=== PATIENT | female | born 1985 | race African-American/Black ===

== ENCOUNTER 2023-09-16 17:55 | Emergency (ER) | payer MEDICARE, SELFPAY ==
[2023-09-16 18:03] VITALS: BP 125/83
[2023-09-16 18:32] LABS: % Basophils 1.4 % (0-2); % Eosinophils 5.1 % (0-6); % Immature Granulocytes 0.2 % (0-0.5); % Lymphocytes 28.3 % (20.5-51.1); Absolute Basophils 0.1 10^3/uL (0-0.2); Absolute Eosinophils 0.3 10^3/uL (0-0.7); Absolute Lymphocytes 1.9 10^3/uL (1.2-3.4); Absolute Monocytes 0.3 10^3/uL (0.1-0.6); Hematocrit 36.6 % (37.0-47.0); Hemoglobin 11.8 g/dL (12.0-16.0); Mean Corp Hgb Conc. 32.2 g/dL (33.0-37.0); Mean Corpuscular Hgb 24.6 pg (27.0-31.0); Mean Corpuscular Volume 76.3 fL (81.0-99.0); Mean Platelet Volume 12.4 fL (7.4-10.4); Nucleated Red Blood Cells % 0 %; Platelet Count 246 10^3/uL (130-400); White Blood Cell Count 6.6 10^3/uL (4.8-10.8)
[2023-09-16 18:35] LABS: HCG, Urine Qualitative Screen Negative
[2023-09-16 18:36] LABS: Urine Albumin Negative (Neg - Trace); Urine Bilirubin Negative (Negative); Urine Character Clear (Clear); Urine Color Yellow; Urine Glucose Negative (Negative); Urine Ketone Negative (Negative); Urine Leukocyte Negative (Negative); Urine Nitrite Negative (Negative); Urine Occult Blood 4+ (Negative); Urine Urobilinogen Negative (Neg - 1+)
[2023-09-16 18:45] LABS: ALT (SGPT) 25 U/L (0-35); AST (SGOT) 22 U/L (14-36); Albumin 3.9 g/dl (3.5-5.0); Alkaline Phosphatase 79 U/L (38-126); Blood Urea Nitrogen 12 mg/dl (7-17); Calcium 9.2 mg/dl (8.4-10.2); Carbon Dioxide 24 mmol/L (22-30); Chloride 103 mmol/L (98-107); Glucose 99 mg/dl (70-99); Sodium 136 mmol/L (135-145); Total Bilirubin 0.5 mg/dl (0.2-1.3); Total Protein 6.6 g/dl (6.3-8.2); eGFR > 60.00
[2023-09-16 18:51] LABS: Potassium 3.6 mmol/L (3.5-5.1)
[2023-09-16 18:54] LABS: Urine Bacteria Few (Negative); Urine Squamous Cell 16-20 /LPF (Few); Urine White Cell 0-2 /HPF (0-5)
--- NOTE | 2023-09-16 19:31 | ED.GENMED ---
History of Present Illness
General
Chief Complaint: Problems
Source: patient
Exam Limitations: none
Time Seen by Provider: 09/16/23 18:42
Nursing documentation reviewed up to this point in time: agreed with
Travel History
Have you had any contact with someone who has COVID-19?: No
Do you have any symptoms of coronavirus? Fever > 100 degrees, chills, cough, shortness of breath, sore throat, loss of taste or smell, muscle aches, or headache?: No
History of Present Illness
History of Present Illness:
38-year-old female states she thinks she had a miscarriage and she is having vaginal bleeding with a foul odor. She states 2 and 1 weeks ago she had a positive test. 4 days ago she started bleeding. She continues to bleed and none today
noted a foul odor.
7 para 1 miscarriage 1 AB 5. Denies abd pain, denies fever/chills, n/v.
Past History
Past History
ED Past Medical History: None
ED Past Surgical History: None
Social History
Tobacco: Smoker
Alcohol: Occasional
Personal: Single
Living: with family
Family History
Family History: Negative Hypertension or Early CAD
Review of Systems
Review of Systems
Allergies reviewed?: Yes
All Other Systems: ROS reviewed and negative except as documented in HPI and ROS
Constitutional: Denies fever or chills
Cardiac: Denies chest pain
ABD/GI: Denies abdominal pain, nausea or vomiting
: Reports bleeding (Foul odor started today); Denies dysuria, frequency, difficulty voiding or urgency
Phy Exam
Physical Exam
Physical Exam:
GENERAL: No acute distress. A&Ox3.
CONSTITUTIONAL: Afebrile.
RESPIRATORY: Regular respirations, nonlabored, lungs clear.
CARDIOVASCULAR: Regular rate and rhythm, no murmurs, no rubs.
GI: Soft, nontender, normal BS
MUSCULOSKELETAL: Moves with ease. Well perfused.
SKIN: Warm, dry, pink
PSYCH: Normal mood and affect. Well kept, interactive and appropriate
NEUROLOGIC: Awake, alert and oriented. No focal neurological deficits
Genitourinary Exam Female
Exam Female: no vaginal discharge (other than [place] )
Vaginal Exam: blood (small amount dark maroon blood, non malodorous)
Vaginal Bleeding: minimal
Vaginal Discharge: foul smelling (no foul odor)
Visual exam of cervix: os closed
Uterus: normal size and nontender
Adnexa: Bilateral: Normal
Neurological Exam
Neurological Exam: alert and no motor deficits
Course
Orders/Labs/Results
Orders:
Orders
09/16/23 18:13
Beta HCG Quantitative Urgent
Comment: ADD ON
Complete Blood Count/With Diff Urgent
Comprehensive Metabolic Panel Urgent
09/16/23 18:14
, Urine Qualitative Screen [HCG, Urine Qualitative Screen] Urgent
Date Specimen was Collected: 09/16/23
Time Specimen was Collected: 18:08
Urinalysis Reflex To Culture Urgent
Date Specimen was Collected: 09/16/23
Time Specimen was Collected: 18:08
Urine Microscopic Reflex Cult Urgent
Chlamydia/GC by PCR Urgent
SEVERIANO Source: U
Specimen Description:
Source:: URINE
Date Specimen was Collected: 09/16/23
Time Specimen was Collected: 18:08
09/16/23 19:08
US Pelvis W Transvag Combined Urgent
Reason For Exam: bleeding, foul odor, +HCG last week, neg today
09/16/23 19:34
Add On- LAB Urgent
Tests Added?: HCG quantitative
09/16/23 22:41
Add On - Microbiology Urgent
Tests Added?: Urine GC/Chlamydia PCR
Abnormal Lab Results
09/16/23 09/16/23
18:13 18:14
Hgb 11.8 L g/dL
(12.0-16.0)
Hct 36.6 L %
(37.0-47.0)
MCV 76.3 L fL
(81.0-99.0)
MCH 24.6 L pg
(27.0-31.0)
MCHC 32.2 L g/dL
(33.0-37.0)
MPV 12.4 H fL
(7.4-10.4)
Ur Occult Blood Reflex 4+ A
(Negative)
Urine RBC 3-6 A /HPF
(0-2)
Urine Bacteria (Reflex) Few A
(Negative)
09/16/23 18:13
09/16/23 18:13
Vital Signs
Initial and Last Documented VS:
Initial Vital Signs
Temp Pulse Resp BP Pulse Ox
99.1 F 88 18 125/83 99
09/16/23 18:03 09/16/23 18:03 09/16/23 18:03 09/16/23 18:03 09/16/23 18:03
Last Documented Vital Signs
Temp Pulse Resp BP Pulse Ox
99.1 F 88 18 113/75 99
09/16/23 18:03 09/16/23 18:03 09/16/23 18:03 09/16/23 21:40 09/16/23 18:03
Information
Weeks gestation: N/A
Location: N/A
MDM/Problems Addressed
Differential Diagnosis Includes:
miscarriage, retained POC, UTI
MDM/Problems Addressed:
38-year-old female states she thinks she had a miscarriage and she is having vaginal bleeding with a foul odor. She states 2 and 1 weeks ago she had a positive test. 4 days ago she started bleeding. She continues to bleed and none today
noted a foul odor.
7 para 1 miscarriage 1 AB 5. Denies abd pain, denies fever/chills, n/v.
09/16/2023 1932 PM
CBC normal
CMP normal
UA negative for infection
urine hCG negative
09/16/2023 2154 PM
Beta hCG quant less than 2.39
Pelvic ultrasound radiology report read: IMPRESSION:
1. � No sonographic evidence for endometrial fluid.
2. � 5.9 mm intramural uterine leiomyoma.
3. � Nabothian cysts.
Other than small amount dark maroon blood discharge, speculum exam unremarkable
Pt [facility] appt [facility] for evaluation she will keep
Urine neg for chlamydia and gonorrhea
*Critical Care Note
Total Time (30-74mins, 75-104mins- exclusive of procedures): Not Applicable
ED Attending Note
-
Portions of this chart may have been created with voice recognition software.� Occasional wrong word or��sound alike� substitutions may have occurred due to the inherent limitations of voice recognition software.
Discharge Plan
Departure
Patient Disposition: Home (Routine Discharge)
Date of Disposition: 09/16/23
Time of Disposition: 22:37
Patient with high blood pressure during this ER visit?: No
Condition: Good
Discharge Problem:
Vaginal bleeding
Instructions: Miscarriage (DC)
Prescriptions:
No Action
aspirin 325 mg Tablet
325 mg PO DAILY Qty: 30 0RF
oxycodone 5 mg Tablet
5 mg PO Q3HPRN PRN (Reason: moderate pain) Qty: 25 0RF
Referrals:
UNKNOWN - PT DOES,NOT KNOW [Family Provider] -
Activity Restrictions/Additional Instructions:
As we discussed, there is nothing worrisome in your workup here today your lab work is normal, your urine is normal.
Your blood work is normal there is no sign in your blood work or any ultrasound of any indication of or retained products of conception.
You may call me Saturday 10a-5 p for the rest of your urine result [phone]
Your vaginal exam is normal save for a small amount of dark red blood.
Keep your appointment with [facility] on .
Interventions
Interventions:
*Risk Screen - Suicide Last Done: 09/16/23 18:05
*General Assessment Last Done: 09/16/23 18:05
*Neglect/Abuse Screening Last Done: 09/16/23 18:05
*Nursing Disposition Last Done: 09/16/23 21:40
ED-Female Genitourinary Assessment Last Done: 09/16/23 21:40
Discharge Date and Time
Discharge Date/Time: 09/16/23 22:49
[2023-09-16 20:38] LABS: Beta HCG Quantitative < 2.39 mIU/ml
[2023-09-16 21:39] VITALS: BP 113/75
[2023-09-16 21:40] VITALS: BP 113/75
== END 2023-09-16 22:49 | disposition home or self-care (01) ==
LOC: EMR 17:55
PROVIDERS: Emergency Medicine; EMERGENCY PHYSICIAN Emergency Medicine
DX: N93.9 Abnormal uterine and vaginal bleeding, unspecified (principal); F17.200 Nicotine dependence, unspecified, uncomplicated; D25.1 Intramural leiomyoma of uterus
CPT/HCPCS: 99284; 76830; 76856; 80053; 81003; 81015; 81025; 84702; 85025; 87491; 87591